=== PATIENT | female | born 1985 ===

== ENCOUNTER 2018-10-04 17:01 | Emergency (ER) | payer BC, MEDICAID, OTHER ==
[2018-10-04 17:02] VITALS: BMI 25.8
[2018-10-04 17:29] VITALS: RESP 16; O2SAT 100
--- NOTE | 2018-10-04 18:07 | ED PDOC ---
HPI: Female Pain Time Seen by Provider: 10/04/18 17:32 Chief Complaint (Nursing): Female Genitourinary Chief Complaint (Provider): Left pelvic pain in History Per: Patient History/Exam Limitations: no limitations Onset/Duration Of Symptoms: Days Current Symptoms Are (Timing): Still Present Quality Of Discomfort: Sharp Associated Symptoms: denies: Fever, Chills, Nausea, Vomiting, Loss Of Appetite, Back Pain, Chest Pain, Constipation, Urinary Symptoms Alleviating Factors: None Additional Complaint(s): 32 yo presents with left sided pelvic pain in . Pt states her LMP was 08/14/18. Pt denies vaginal bleeding. Pt without N/V. Past Medical History Reviewed: Historical Data, Nursing Documentation, Vital Signs Vital Signs: Last Vital Signs Temp 98.6 F 10/04/18 17:28 Pulse 83 10/04/18 17:28 Resp 16 10/04/18 17:28 BP 122/79 10/04/18 17:28 Pulse Ox 100 10/04/18 17:28 Primary Care Provider: Hina Moreno - Medical History PMH: No Chronic Diseases - Surgical History Surgical History: No Surg Hx - Immunization History Hx Tetanus Toxoid Vaccination: No Hx Influenza Vaccination: No Hx Pneumococcal Vaccination: No - Home Medications Home Medications: Ambulatory Orders Medication Instructions Recorded No Known Home Med 09/24/17 - Allergies Allergies/Adverse Reactions: Allergies Allergy/AdvReac Type Severity Reaction Status Date / Time No Known Allergies Allergy Verified 09/24/17 12:16 - Laboratory Results Result Diagrams: 10/04/18 18:57 10/04/18 18:57 - ECG O2 Sat by Pulse Oximetry: 100 Disposition - Disposition Forms: [employer] (Polish)
[2018-10-04 19:07] LABS: BASO # 0.1 K/uL (0.0-0.2); BASO % 0.8 % (0.0-2.0); EOS % 0.4 % (0.0-4.0); HEMOGLOBIN 13.4 g/dL (12.0-16.0); LYMPH # 1.8 K/uL (1.0-4.3); LYMPH % 18.5 % (20.0-40.0); MEAN CELL VOLUME 91.8 fl (81.0-99.0); MEAN CORPUSCULAR HEMOGLOBIN 31.2 pg (27.0-31.0); MONO # 0.6 K/uL (0.0-0.8); MONO % 6.5 % (0.0-10.0); NEUT # 7.1 K/uL (1.8-7.0); NEUT % 73.8 % (50.0-75.0); NRBC % 0.2 % (0.0-0.0); RBC 4.29 Mil/uL (3.80-5.20); RED CELL DISTRIBUTION WIDTH 13.3 % (11.5-14.5); WHITE BLOOD COUNT 9.6 K/uL (4.8-10.8)
[2018-10-04 19:31] LABS: ALB/GLOB RATIO 1.4 (1.0-2.1); ALBUMIN 4.8 g/dL (3.5-5.0); BLOOD UREA NITROGEN 10 mg/dl (7-17); CALCIUM 9.2 mg/dL (8.4-10.2); GFR NON-AFRICAN AMERICAN > 60
[2018-10-04 19:41] LABS: ALT/SGPT 19 U/L (9-52); AST/SGOT 38 U/L (14-36)
--- NOTE | 2018-10-04 20:11 | ED PDOC ---
- Laboratory Results Result Diagrams: 10/04/18 18:57 10/04/18 18:57 Lab Results: Total Bilirubin 0.7 mg/dl (0.2-1.3) 10/04/18 18:57 AST 38 U/L (14-36) H D 10/04/18 18:57 ALT 19 U/L (9-52) 10/04/18 18:57 Alkaline Phosphatase 54 U/L (38-126) 10/04/18 18:57 Total Protein 8.3 G/DL (6.3-8.2) H 10/04/18 18:57 Albumin 4.8 g/dL (3.5-5.0) 10/04/18 18:57 Globulin 3.5 gm/dL (2.2-3.9) 10/04/18 18:57 Albumin/Globulin Ratio 1.4 (1.0-2.1) 10/04/18 18:57 Beta HCG, Quant 446.48 mIU/mL 10/04/18 18:57 - ECG O2 Sat by Pulse Oximetry: 100 - Progress ED Course And Treament: PATIENT ADVISED TO RETURN TO ED IN 2 DAYS FOR REPEAT BETA HCG AND POSSIBLE ULT RASOUND. Medical Decision Making Medical Decision Makin:14 US OB 1st trimester read and reviewed by radiologist COMMENTS: No intrauterine is identified. No gestational is seen. No yolk sac or pole is identified. No heart motion is detected. The uterus is anteverted measuring 7.1 x 7.3 x 6.6 cm. The endometrium is thickened measuring 2.4 mm. Tiny, echogenic focus is seen posterior to endometrial canal measuring 9 x 5 mm. Nabothian cyst is seen measuring 1.06 x 0.65 cm. The right ovary measures 4.9 x 4 x 4.2. The left ovary measures 3.2 x 2.7 x 2.1. Blood flow is demonstrated within both ovaries. Complex structure is seen medial to right ovary measuring 2 x 2.5 x 1.7 cm. Large right ovarian cyst is seen measuring 4 x 3.5 x 3 cm. IMPRESSION: 1. No intrauterine gestation. 2. Nabothian cyst. 3. Thickened endometrium with a tiny, echogenic focus posterior to endometrial canal. 4. Complex structure medial to right ovary, ectopic is not excluded. 5. Large right ovarian cyst. 6. Close monitoring with beta HCG and consider short term repeat study as clinically warranted. Disposition - Clinical Impression Clinical Impression: Abdominal pain affecting - POA Present On Arrival: None - Disposition Disposition: Routine/Home Disposition Time: 21:32 Condition: FAIR Additional Instructions: REGRESA EN 2 RAND PARA CHEQUAR PRUEBA DE HORMONE POSSIBLE NECESARIO REPETIR ULTRASONIDA. Instructions: Threatened Miscarriage (DC), Stomach Pain in Early Forms: [employer] (Occitan) Print Language: GREENLANDIC
[2018-10-04 21:31] VITALS: BP 134/65; PULSE 100; TEMP 97.9
--- NOTE | 2018-10-05 17:17 | US ---
Date of service: 10/04/2018 PROCEDURE: OB Pelvic Ultrasound HISTORY: Left sided pelvic pain in LMP: 08/14/2018 suggesting 7 week 2 day gestation. COMPARISON: None available. FINDINGS: UTERUS: Gestational sac: No intrauterine gestation appreciable. Prominent endometrium is identified measuring up to 24 mm thickness, mildly heterogeneous in overall echotexture. No suspicious myometrial findings the cervix grossly nonfocal appearing. Uterus measures 7.1 x 7.3 x 6.6 cm. Normal in size and appearance, anteverted. Questionable 0.9 cm fibroid at the high fundus posteriorly. CERVIX: Measures 3.4 cm. Long and closed. No cervical abnormality seen. Small nabothian cyst identified posteriorly. RIGHT OVARY: Measures 4.9 x 4.0 x 4.2 cm. No mass lesion. Normal flow. A large simple cyst measures 4.0 x 3.5 x 3.1 cm possibly representing a corpus luteum cyst. No pole yolk sac is identified within this cyst to suggest ectopic. Nonspecific complex soft tissue and cystic changes seen medial to this cyst measuring 2.0 x 2.5 x 1.7 cm. LEFT OVARY: Measures 3.2 x 2.7 x 2.1 cm. No solid mass. Normal flow. FREE FLUID: None. OTHER FINDINGS: None. IMPRESSION: No definite intrauterine gestation is appreciated or ectopic at this time with prominent endometrium measuring 24 mm thickness. A moderate size right adnexal cyst is appreciated measuring 4.0 cm greatest dimension but without pole yolk sac. Obstetric follow-up is advised including serial beta HCG analysis as well as one-week follow-up transvaginal pelvic ultrasound. Consider early intrauterine gestation versus demise. Ectopic gestation not identified but not completely excluded either. Complex solid, cystic soft tissue changes medial to right ovarian cysts are nonspecific but will require clinical and sonographic follow-up. Concordant preliminary report from [facility], 10/04/2018, 9:14 p.m..
== END 2018-10-04 21:32 | disposition home or self-care (01) ==
LOC: H.ER 17:01
DX: O26.899 Other specified pregnancy related conditions, unspecified trimester (principal); N83.201 Unspecified ovarian cyst, right side; O34.80 Maternal care for other abnormalities of pelvic organs, unspecified trimester

== ENCOUNTER 2018-10-06 11:34 | Emergency (ER) | payer MEDICAID ==
[2018-10-06 11:53] VITALS: RESP 18; O2SAT 99; BMI 26.0
[2018-10-06 13:04] LABS: BASO # 0.1 K/uL (0.0-0.2); BASO % 0.9 % (0.0-2.0); EOS % 0.6 % (0.0-4.0); HEMOGLOBIN 13.4 g/dL (12.0-16.0); LYMPH # 1.5 K/uL (1.0-4.3); LYMPH % 22.3 % (20.0-40.0); MEAN CELL VOLUME 92.8 fl (81.0-99.0); MEAN CORPUSCULAR HEMOGLOBIN 31.2 pg (27.0-31.0); MEAN CORPUSCULAR HGB CONC 33.6 g/dL (33.0-37.0); MEAN PLATELET VOLUME 8.7 fl (7.2-11.7); MONO # 0.6 K/uL (0.0-0.8); MONO % 8.4 % (0.0-10.0); NEUT # 4.5 K/uL (1.8-7.0); NEUT % 67.8 % (50.0-75.0); NRBC % 0.1 % (0.0-0.0); RBC 4.31 Mil/uL (3.80-5.20); RED CELL DISTRIBUTION WIDTH 13.2 % (11.5-14.5); WHITE BLOOD COUNT 6.6 K/uL (4.8-10.8)
[2018-10-06 13:13] LABS: BLOOD UREA NITROGEN 8 mg/dl (7-17); CALCIUM 9.1 mg/dL (8.4-10.2); GFR NON-AFRICAN AMERICAN > 60
--- NOTE | 2018-10-06 14:15 | ED PDOC ---
HPI: Female Pain Time Seen by Provider: 10/06/18 12:11 Chief Complaint (Nursing): Abnormal Labs Chief Complaint (Provider): repeat eval for early History Per: Patient, Knocker Out ([id number]) Onset/Duration Of Symptoms: Intermittent Episodes Current Symptoms Are (Timing): Intermittent Episodes Severity: Mild Quality Of Discomfort: Cramping Alleviating Factors: None Additional Complaint(s): 32yo female returns to ED for re-eval after being seen 2 days ago found to have early without IUP, BHCG approx 450, since then denies dizziness or bleeding, notes only mild pelvic cramping. prior termination. Rh+ on prior visit Past Medical History Reviewed: Historical Data, Nursing Documentation, Vital Signs Vital Signs: Last Vital Signs Temp 98.7 F 10/06/18 11:52 Pulse 84 10/06/18 11:52 Resp 18 10/06/18 11:52 BP 117/73 10/06/18 11:52 Pulse Ox 99 10/06/18 11:52 Primary Care Provider: Non [facility] Provider, - Medical History PMH: No Chronic Diseases - Family History Family History: States: Unknown Family Hx - Social History Current smoker - smoking cessation education provided: No - Immunization History Hx Tetanus Toxoid Vaccination: No Hx Influenza Vaccination: No Hx Pneumococcal Vaccination: No - Home Medications Home Medications: Ambulatory Orders Medication Instructions Recorded No Known Home Med 09/24/17 - Allergies Allergies/Adverse Reactions: Allergies Allergy/AdvReac Type Severity Reaction Status Date / Time No Known Allergies Allergy Verified 09/24/17 12:16 Review of Systems ROS Statement: Except As Marked, All Systems Reviewed And Found Negative Constitutional: Negative for: Fever Cardiovascular: Negative for: Chest Pain Respiratory: Negative for: Shortness of Breath Gastrointestinal: Negative for: Abdominal Pain, Diarrhea Genitourinary Female: Positive for: Pelvic Pain. Negative for: Frequency, Incontinence, Hematuria, Vaginal Discharge, Vaginal Bleeding Musculoskeletal: Negative for: Neck Pain, Back Pain Skin: Negative for: Rash, Lesions, Jaundice Neurological: Negative for: Weakness, Numbness, Headache Psych: Negative for: Anxiety Physical Exam - Reviewed Nursing Documentation Reviewed: Yes Vital Signs Reviewed: Yes - Physical Exam Appears: Positive for: Well, Non-toxic, No Acute Distress Head Exam: Positive for: ATRAUMATIC, NORMAL INSPECTION, NORMOCEPHALIC Skin: Positive for: Normal Color, Warm, DRY Eye Exam: Positive for: EOMI, Normal appearance, PERRL ENT: Positive for: Normal ENT Inspection Neck: Positive for: Normal, Painless ROM Cardiovascular/Chest: Positive for: Regular Rate, Rhythm Respiratory: Positive for: CNT, Normal Breath Sounds Gastrointestinal/Abdominal: Positive for: Soft. Negative for: Tenderness, Guarding Extremity: Positive for: Normal ROM. Negative for: Deformity Neurological/Psych: Positive for: Awake, Alert, Normal Tone - Laboratory Results Result Diagrams: 10/06/18 12:54 10/06/18 12:54 Lab Results: Beta HCG, Quant 843.47 mIU/mL 10/06/18 12:54 - ECG O2 Sat by Pulse Oximetry: 99 Medical Decision Making Medical Decision Making: BHCG trending up, about doubled since last visit US report reviewed from prior visit, cystic structures adnexa last visit, will repeat to assess for any progression 1552 FINDINGS: UTERUS: Measures 0.9 x 7.1 x 11.8 cm. Normal in size and appearance. No fibroid or other mass lesion seen. ENDOMETRIUM: Measures 14.7 mm in diameter. Substantial decrease in thickness and complex [place] of endometrium compared to the prior study. No visible retained products of conception. CERVIX: No cervical abnormality identified. Closed cervix measures 3.6 cm. RIGHT OVARY: Measures 5 x 5.1 x 4.0 cm. No solid mass. Normal flow. Simple cyst 3.4 x 4.2 x 3.7 cm LEFT OVARY: Measures 2 x 2.8 x 3.5 cm. No solid mass. Normal flow. FREE FLUID: No significant free fluid noted. OTHER FINDINGS: None. IMPRESSION: Substantial decrease in thickness of endometrium compared to the prior study. Persistent simple cyst right adnexa. Unremarkable left adnexa. --------- results dw patient via wine pasteurizer Reyes on [employer]. Pelvic rest, indications for return ER discussed, followup OB or return to ED 5 days. Asymptomatic on discharge. ------- Scribe Attestation: Documented by Hemant Ahn acting as a scribe for Jacob Tolbert III, DO. Provider Scribe Attestation: All medical record entries made by the Scribe were at my direction and persona lly dictated by me. I have reviewed the chart and agree that the record accurately reflects my personal performance of the history, physical exam, medical decision making, and the department course for this patient. I have also personally directed, reviewed, and agree with the discharge instructions and disposition. Disposition - Clinical Impression Clinical Impression: Threatened - Patient ED Disposition Is Patient to be Admitted: No Counseled Patient/Family Regarding: Studies Performed, Diagnosis, Need For Followup, Rx Given - Disposition [facility] Disposition: Routine/Home Disposition Time: 16:30 Condition: STABLE Additional Instructions: Recommend repeat evaluation in 5-7 days. Return to ER for any worse or new symptoms/. Instructions: Threatened Miscarriage (DC) Forms: [employer] (Scottish) Print Language: SPA
--- NOTE | 2018-10-06 16:50 | US ---
Date of service: 10/06/2018 HISTORY: repeat r/o ectopic, HCG 900 COMPARISON: 10/04/2018. TECHNIQUE: Transabdominal, transvaginal. Real -time technique with 2D, duplex and color Doppler. FINDINGS: UTERUS: Measures 0.9 x 7.1 x 11.8 cm. Normal in size and appearance. No fibroid or other mass lesion seen. ENDOMETRIUM: Measures 14.7 mm in diameter. Substantial decrease in thickness and complex [place] of endometrium compared to the prior study. No visible retained products of conception. CERVIX: No cervical abnormality identified. Closed cervix measures 3.6 cm. RIGHT OVARY: Measures 5 x 5.1 x 4.0 cm. No solid mass. Normal flow. Simple cyst 3.4 x 4.2 x 3.7 cm LEFT OVARY: Measures 2 x 2.8 x 3.5 cm. No solid mass. Normal flow. FREE FLUID: No significant free fluid noted. OTHER FINDINGS: None. IMPRESSION: Substantial decrease in thickness of endometrium compared to the prior study. Persistent simple cyst right adnexa. Unremarkable left adnexa.
[2018-10-06 20:13] VITALS: BP 115/62; PULSE 75; TEMP 97.9
== END 2018-10-06 18:36 | disposition home or self-care (01) ==
LOC: H.ER 11:34
DX: O20.0 Threatened abortion (principal)